=== PATIENT | male | born 1970 | race Caucasian/White ===

== ENCOUNTER 2022-01-18 20:05 | Emergency (ER) | payer MEDICAID ==
[~2022-01-18] VITALS: Ht 177.8 cm; Wt 84.1 kg
[2022-01-18] MEDS ORDERED: cloNIDine 0.1 mg tablet PO ONE (21:30)
[2022-01-18] MEDS ORDERED: cloNIDine 0.1 mg tablet PO STA (22:06)
[2022-01-18] MEDS ORDERED: lisinopril 10 MG tablet PO STA (22:06)
[2022-01-18] MEDS ORDERED: LISI20TA28 PO (22:14)
[2022-01-18 23:28] VITALS: BP 207/136
== END 2022-01-18 23:32 | disposition home or self-care (01) ==
LOC: ER 20:06
DX: F15.10 Other stimulant abuse, uncomplicated (principal); I10 Essential (primary) hypertension; Z88.0 Allergy status to penicillin
CPT/HCPCS: 99285

== ENCOUNTER 2023-03-26 21:22 | Inpatient (IN) | payer MEDICAID ==
[~2023-03-26] VITALS: Ht 167.6 cm; Wt 61.2 kg
[2023-03-26] MEDS ORDERED: heparin 25,000 UNIT/250ml bag 250 ML IV PRN (21:45)
[2023-03-26] MEDS ORDERED: nitroGLYCERIN 25mg/250mL D5W 250 ML IV SCH (21:45)
[2023-03-26] MEDS ORDERED: heparin 10,000 units/1 ML INJ IV PRN (21:45)
[2023-03-26] MEDS ORDERED: nitroGLYCERIN-Tridil 50MG/D5W 250 ML IV SCH (21:50)
--- NOTE | 2023-03-26 21:53 | NUR ---
SPOKE WITH ATTENDING ED DR. BUTLER ABOUT MEDICATIONS PT ARRIVED ON. PER MD, CONTINUE OUR CARDIAC HEPARIN PROTOCOL AND TITRATABLE NIRTOGLYCERIN GTT TO CONTROL BP FOR SYSTOLIC UNDER 150.
[2023-03-26 21:57] LABS: BASOPHILS # (AUTO) 0.1 X10'3 (0-0.2); BASOPHILS % (AUTO) 0.6 % (0-1); EOSINOPHILS # (AUTO) 0.3 X10'3 (0-0.9); EOSINOPHILS % (AUTO) 3.4 % (0-6); HEMATOCRIT 28.6 % (42.0-52.0); HEMOGLOBIN 9.9 g/dl (14.0-17.9); LYMPHOCYTES # (AUTO) 1.5 X10'3 (1.1-4.8); LYMPHOCYTES % (AUTO) 14.8 % (21-51); MEAN CORPUSCULAR HEMOGLOBIN 32.6 PG (27.0-31.0); MEAN CORPUSCULAR HGB CONC 34.5 g/dL (33.0-36.5); MEAN CORPUSCULAR VOLUME 94.4 FL (78-98); MEAN PLATELET VOLUME 7.6 FL (7.4-10.4); MONOCYTES # (AUTO) 0.5 X10'3 (0-0.9); MONOCYTES % (AUTO) 5.4 % (2-12); NEUTROPHILS # (AUTO) 7.5 X10'3 (1.8-7.7); NEUTROPHILS % (AUTO) 75.8 % (42-75); PLATELET COUNT 163 X10'3 (140-440); RED BLOOD COUNT 3.02 X10'6 (4.70-6.10)
[2023-03-26 22:04] LABS: PROTHROMBIN TIME 10.9 SECONDS (9.0-12.0)
[2023-03-26 22:06] LABS: ALANINE AMINOTRANSFERASE 39 U/L (12-78); ALBUMIN 3.3 G/DL (3.4-5.0); ALBUMIN/GLOBULIN RATIO 0.9 (1.1-1.5); ALKALINE PHOSPHATASE 103 IU/L (46-116); ANION GAP 8 (8-16); ASPARTATE AMINO TRANSFERASE 32 U/L (10-37); BILIRUBIN,TOTAL 0.5 MG/DL (0.1-1.0); BLOOD UREA NITROGEN 34 MG/DL (7-18); BUN/CREATININE RATIO 13.7 (10.0-20.0); CALCIUM 8.7 MG/DL (8.5-10.1); CHLORIDE 103 MMOL/L (99-107); CREATININE 2.48 MG/DL (0.60-1.10); GLUCOSE 130 MG/DL (70-104); POTASSIUM 4.1 MMOL/L (3.5-5.1); SODIUM 136 MMOL/L (135-145); TOTAL CARBON DIOXIDE 24.7 MMOL/L (24-32); eCRCL 31 ML/MIN; eGFR 28 ML/MIN
--- NOTE | 2023-03-26 22:14 | NUR ---
pt started at 800units heparin based on protocol/pt weight. no bolus given d/t 5000u bolus given at [facility]. MD Fong aware and suzy. awaiting PTT.
[2023-03-26 22:24] LABS: APTT 84 SECONDS (22-32)
[2023-03-26] MEDS ORDERED: NO HOME MEDS (22:27)
--- NOTE | 2023-03-26 22:33 | NUR ---
per dr garrido, bp systolic goal below 160.
[2023-03-26] MEDS ORDERED: acetaminophen 1,000mg/100ml IV 100 ML IV ONE (22:45)
[2023-03-26] MEDS ORDERED: ipratropium/albuterol 3ml nebule NEB ONE (22:50)
[2023-03-26 22:58] VITALS: PULSE 82; RESP 16; O2SAT 96
[2023-03-26 23:02] VITALS: PULSE 86; RESP 16; O2SAT 96
[2023-03-26] MEDS ORDERED: potassium Cl 20 mEq SR tablet PO PRN ×2 (23:15)
[2023-03-26] MEDS ORDERED: magnesium Cl slow-release 64mg tablet PO PRN (23:15)
[2023-03-26] MEDS ORDERED: morphine 2 MG/ML inj. syringe IV PRN ×2 (23:15)
[2023-03-26] MEDS ORDERED: magnesium hydroxide 30ml (MOM) UD suspension PO PRN (23:15)
[2023-03-26] MEDS ORDERED: HYDROcodone/acetaminophen 5mg/325mg tablet PO PRN (23:15)
[2023-03-26] MEDS ORDERED: mag hydrox/Alum hydrox/simeth 30ml oral suspension PO PRN (23:15)
[2023-03-26] MEDS ORDERED: potassium Cl 40MEQ/1/2NS 520ml 520 ML IV PRN (23:15)
[2023-03-26] MEDS ORDERED: ondansetron/PF 4mg/2ml inj IV PRN (23:15)
[2023-03-26] MEDS ORDERED: magnesium 2GM in 50ml NS 50 ML IV PRN (23:15)
[2023-03-26] MEDS ORDERED: magnesium 4gm in 100ml NS 100 ML IV PRN (23:15)
[2023-03-26] MEDS ORDERED: proCHLORperazine 10 MG/2 ml inj IV ONE (23:45)
[2023-03-27] VITALS (22 sets, daily range): BP systolic 130–197; BP diastolic 83–136; PULSE 64–88; RESP 14–20; TEMP 97.3–99.4; O2SAT 90–96
[2023-03-27] MEDS ORDERED: cloNIDine 0.1 mg tablet PO STA (00:24)
--- NOTE | 2023-03-27 00:44 | NUR ---
attempted to call report, mady chahal is currently with another pt.
--- NOTE | 2023-03-27 01:30 | NUR ---
Pt arrived fr/the ED and assisted to bed 3018A, C/O WARNER. IV Nitro @ 30mcg/min infusing, IV Heparin inf per cardiac protocol @ 600u/hr. 2 RN skin check and MRSA swab completed. Pt. oriented to bed, room, and POC w/treatment education given. Pt states he has not taken any meds f/HTN f/2 months. Pt. also states he does not know the name of his Provider in [place] where he is from.
[2023-03-27 01:38] LABS: BASOPHILS # (AUTO) 0.1 X10'3 (0-0.2); BASOPHILS % (AUTO) 0.7 % (0-1); EOSINOPHILS # (AUTO) 0.2 X10'3 (0-0.9); EOSINOPHILS % (AUTO) 2.3 % (0-6); HEMATOCRIT 27.2 % (42.0-52.0); HEMOGLOBIN 9.4 g/dl (14.0-17.9); LYMPHOCYTES # (AUTO) 1.2 X10'3 (1.1-4.8); LYMPHOCYTES % (AUTO) 13.8 % (21-51); MEAN CORPUSCULAR HEMOGLOBIN 32.7 PG (27.0-31.0); MEAN CORPUSCULAR HGB CONC 34.6 g/dL (33.0-36.5); MEAN CORPUSCULAR VOLUME 94.6 FL (78-98); MEAN PLATELET VOLUME 7.3 FL (7.4-10.4); MONOCYTES # (AUTO) 0.4 X10'3 (0-0.9); NEUTROPHILS # (AUTO) 6.6 X10'3 (1.8-7.7); NEUTROPHILS % (AUTO) 78.2 % (42-75); PLATELET COUNT 158 X10'3 (140-440); RED BLOOD COUNT 2.87 X10'6 (4.70-6.10); RED CELL DISTRIBUTION WIDTH 14.1 % (11.5-14.5); WHITE BLOOD COUNT 8.5 X10'3 (4.5-11.0)
[2023-03-27 01:48] LABS: ALANINE AMINOTRANSFERASE 38 U/L (12-78); ALBUMIN 3.2 G/DL (3.4-5.0); ALBUMIN/GLOBULIN RATIO 0.9 (1.1-1.5); ALKALINE PHOSPHATASE 96 IU/L (46-116); ANION GAP 7 (8-16); ASPARTATE AMINO TRANSFERASE 28 U/L (10-37); BILIRUBIN,TOTAL 0.5 MG/DL (0.1-1.0); BLOOD UREA NITROGEN 34 MG/DL (7-18); BUN/CREATININE RATIO 13.4 (10.0-20.0); CALCIUM 8.8 MG/DL (8.5-10.1); CHLORIDE 104 MMOL/L (99-107); CREATININE 2.53 MG/DL (0.60-1.10); GLUCOSE 130 MG/DL (70-104); POTASSIUM 4.2 MMOL/L (3.5-5.1); SODIUM 137 MMOL/L (135-145); TOTAL CARBON DIOXIDE 25.7 MMOL/L (24-32); TOTAL PROTEIN 6.7 G/DL (6.4-8.2); eCRCL 30 ML/MIN; eGFR 27 ML/MIN
[2023-03-27 01:51] LABS: MAGNESIUM 1.7 MG/DL (1.5-2.4)
[2023-03-27] MEDS: HYDROcodone/acetaminophen 10/325mg tab PO PRN ×2 (02:27→07:36)
[2023-03-27] MEDS: cloNIDine 0.1 mg tablet PO PRN ×2 (04:52→11:34)
--- NOTE | 2023-03-27 05:00 | NUR ---
IV Nitro cont. to infuse @ 30mcg/min. SBP mid 180-mid 190. PRN Clonidine PO admin. Heparin Drip cont @ 600U/HR. Pt. cont to C/O WARNER, medicated f/minimum relief. Noted to be NSR 70s-80s. Skin care given to feet and karla area, using urinal approp, taking PO fluids. Wheezes auscultated to bilat mid lobes.
--- NOTE | 2023-03-27 06:50 | NUR ---
Patient in room PCU 3018. I have received report from YESENIA TA, and had the opportunity to ask questions and assume patient care.
--- NOTE | 2023-03-27 07:14 | NUR ---
Problems reprioritized. Patient report given, questions answered & plan of care reviewed with Patricia PATTERSON.
[2023-03-27] MEDS: docusate sod 100mg capsule PO SCH ×2 (07:37→20:00)
[2023-03-27] MEDS ORDERED: CefTRIAXone/D5W-Rocephin 1gm 50 ML IV SCH (08:00)
[2023-03-27] MEDS: K and/or MAG REPLACEMENT MC SCH ×2 (08:00→20:00)
[2023-03-27] MEDS: furosemide 20 MG/2 ML vial IV SCH ×2 (08:30→22:13)
[2023-03-27] MEDS ORDERED: lisinopril 10 MG tablet PO ONE (10:55)
[2023-03-27] MEDS ORDERED: LORazepam 0.5 MG tablet PO PRN (12:40)
--- NOTE | 2023-03-27 12:55 | NUR ---
PROVIDER NOTIFIED PT'S BP REMAINS ELEVATED DESPITE LISINOPRIL AND CATAPRES. RECEIVED AN ORDER FOR HYDRALAZINE 10 MG IV Q6HR PRN, FOR SBP >180, DBP > 120.
[2023-03-27] MEDS: hydrALAZINE 20mg/ml inj. IV PRN (13:13)
--- NOTE | 2023-03-27 18:41 | NUR ---
Problems reprioritized. Patient report given, questions answered & plan of care reviewed with YESENIA ALLAN.
[2023-03-27] MEDS: levoFLOXACIN-Levaquin 250mg/D5 50 ML IV SCH (22:17)
[2023-03-28] MEDS: hydrALAZINE 20mg/ml inj. IV PRN ×2 (00:43→08:03)
[2023-03-28] MEDS: acetaminophen 325mg tablet PO PRN ×2 (04:36→08:33)
--- NOTE | 2023-03-28 06:17 | NUR ---
Problems reprioritized. Patient report given, questions answered & plan of care reviewed with Ronald PATTERSON.
[2023-03-28 06:37] LABS: ALANINE AMINOTRANSFERASE 29 U/L (12-78); ALBUMIN 3.3 G/DL (3.4-5.0); ALBUMIN/GLOBULIN RATIO 0.8 (1.1-1.5); ALKALINE PHOSPHATASE 101 IU/L (46-116); ANION GAP 6 (8-16); ASPARTATE AMINO TRANSFERASE 23 U/L (10-37); BILIRUBIN,TOTAL 0.5 MG/DL (0.1-1.0); BLOOD UREA NITROGEN 36 MG/DL (7-18); BUN/CREATININE RATIO 13.5 (10.0-20.0); CALCIUM 9.7 MG/DL (8.5-10.1); CHLORIDE 102 MMOL/L (99-107); CREATININE 2.66 MG/DL (0.60-1.10); GLUCOSE 104 MG/DL (70-104); MAGNESIUM 1.9 MG/DL (1.5-2.4); POTASSIUM 4.5 MMOL/L (3.5-5.1); SODIUM 136 MMOL/L (135-145); TOTAL CARBON DIOXIDE 27.8 MMOL/L (24-32); TOTAL PROTEIN 7.4 G/DL (6.4-8.2); eCRCL 29 ML/MIN; eGFR 26 ML/MIN
[2023-03-28 06:53] LABS: BASOPHILS # (AUTO) 0.1 X10'3 (0-0.2); BASOPHILS % (AUTO) 0.8 % (0-1); EOSINOPHILS # (AUTO) 0.3 X10'3 (0-0.9); EOSINOPHILS % (AUTO) 3.9 % (0-6); HEMATOCRIT 32.1 % (42.0-52.0); LYMPHOCYTES # (AUTO) 1.2 X10'3 (1.1-4.8); LYMPHOCYTES % (AUTO) 15.5 % (21-51); MEAN CORPUSCULAR HEMOGLOBIN 32.4 PG (27.0-31.0); MEAN CORPUSCULAR HGB CONC 34.2 g/dL (33.0-36.5); MEAN CORPUSCULAR VOLUME 94.9 FL (78-98); MONOCYTES # (AUTO) 0.5 X10'3 (0-0.9); MONOCYTES % (AUTO) 6.3 % (2-12); NEUTROPHILS # (AUTO) 5.7 X10'3 (1.8-7.7); NEUTROPHILS % (AUTO) 73.5 % (42-75); PLATELET COUNT 196 X10'3 (140-440); RED BLOOD COUNT 3.38 X10'6 (4.70-6.10); RED CELL DISTRIBUTION WIDTH 14.2 % (11.5-14.5); WHITE BLOOD COUNT 7.7 X10'3 (4.5-11.0)
[2023-03-28 07:57] VITALS: BP 218/136; PULSE 80; RESP 18; TEMP 97.7; O2SAT 100
[2023-03-28] MEDS ORDERED: lisinopril 10 MG tablet PO SCH (08:00)
[2023-03-28] MEDS: K and/or MAG REPLACEMENT MC SCH ×2 (08:00→20:00)
[2023-03-28] MEDS: furosemide 20 MG/2 ML vial IV SCH ×2 (08:07→20:58)
[2023-03-28] MEDS: docusate sod 100mg capsule PO SCH ×2 (08:08→20:58)
[2023-03-28] MEDS: levoFLOXACIN-Levaquin 250mg/D5 50 ML IV SCH (08:11)
[2023-03-28 08:12] VITALS: RESP 16; O2SAT 98
[2023-03-28] MEDS: heparin, porcine 5000 units/ml vial SQ SCH ×2 (08:12→20:58)
[2023-03-28] MEDS: cloNIDine 0.1 mg tablet PO PRN (08:32)
[2023-03-28] MEDS: lisinopril 20mg tablet PO SCH ×2 (08:44→20:56)
[2023-03-28 10:45] VITALS: BP 154/89; PULSE 93; RESP 12; TEMP 99.9; O2SAT 98
[2023-03-28 15:15] VITALS: BP 140/89; PULSE 89; RESP 26; TEMP 97.9; O2SAT 98
[2023-03-28] MEDS ORDERED: HYDR-4069 PO (15:16)
[2023-03-28 18:00] VITALS: BP 140/89; PULSE 76; RESP 18; TEMP 97.3; O2SAT 95
--- NOTE | 2023-03-28 18:30 | NUR ---
Patient in room PCU 3018A. I have received report from CURTIS PATTERSON, and had the opportunity to ask questions and assume patient care.
[2023-03-28 22:00] VITALS: BP 172/114; PULSE 87; RESP 18; TEMP 97.6; O2SAT 95
--- NOTE | 2023-03-28 23:02 | NUR ---
PAGER ID: [phone] MESSAGE: [phone] Lakhwinder Menendez BP 180/110 Rajani PATTERSON [phone]
[2023-03-28] MEDS ORDERED: hydrALAZINE 20mg/ml inj. IV PRN (23:10)
[2023-03-29 01:03] VITALS: BP 157/86
--- NOTE | 2023-03-29 02:00 | NUR ---
Patient refused VS except BP
[2023-03-29 06:15] VITALS: BP 172/94; PULSE 76; RESP 16; TEMP 97.7; O2SAT 94
--- NOTE | 2023-03-29 06:30 | NUR ---
Problems reprioritized. Patient report given CURTIS PATTERSON, questions answered & plan of care reviewed with .
[2023-03-29] MEDS: K and/or MAG REPLACEMENT MC SCH (08:00)
[2023-03-29 08:15] VITALS: RESP 16; O2SAT 96
[2023-03-29] MEDS: lisinopril 20mg tablet PO SCH (08:45)
[2023-03-29] MEDS: docusate sod 100mg capsule PO SCH (08:46)
[2023-03-29] MEDS: furosemide 20 MG/2 ML vial IV SCH (08:47)
[2023-03-29] MEDS: levoFLOXACIN-Levaquin 250mg/D5 50 ML IV SCH (08:47)
[2023-03-29] MEDS: heparin, porcine 5000 units/ml vial SQ SCH (08:54)
[2023-03-29] MEDS ORDERED: LOP25T PO (10:42)
[2023-03-29] MEDS ORDERED: LISI20TA28 PO (10:42)
[2023-03-29 11:00] VITALS: BP 149/103; PULSE 84; RESP 16; TEMP 98.8; O2SAT 94
[2023-03-29 11:57] LABS: BASOPHILS % (AUTO) 0.9 % (0-1); EOSINOPHILS # (AUTO) 0.2 X10'3 (0-0.9); EOSINOPHILS % (AUTO) 4.2 % (0-6); HEMATOCRIT 32.4 % (42.0-52.0); HEMOGLOBIN 11.1 g/dl (14.0-17.9); LYMPHOCYTES # (AUTO) 1.1 X10'3 (1.1-4.8); LYMPHOCYTES % (AUTO) 20.7 % (21-51); MEAN CORPUSCULAR HEMOGLOBIN 32.6 PG (27.0-31.0); MEAN CORPUSCULAR HGB CONC 34.4 g/dL (33.0-36.5); MEAN CORPUSCULAR VOLUME 94.7 FL (78-98); MEAN PLATELET VOLUME 8.1 FL (7.4-10.4); MONOCYTES # (AUTO) 0.4 X10'3 (0-0.9); MONOCYTES % (AUTO) 7.4 % (2-12); NEUTROPHILS # (AUTO) 3.6 X10'3 (1.8-7.7); NEUTROPHILS % (AUTO) 66.8 % (42-75); PLATELET COUNT 203 X10'3 (140-440); RED BLOOD COUNT 3.42 X10'6 (4.70-6.10); RED CELL DISTRIBUTION WIDTH 13.8 % (11.5-14.5); WHITE BLOOD COUNT 5.4 X10'3 (4.5-11.0)
[2023-03-29] MEDS ORDERED: FLU VACC QS2023-24(6MOS UP)/PF 60 MCG/0.5 ML SYRINGE IM ONE (12:00)
[2023-03-29] MEDS ORDERED: pneumococcal 23-VAL P-sac vacc 25 mcg/0.5ml vial IMVAC ONE (12:00)
[2023-03-29 12:12] LABS: ALANINE AMINOTRANSFERASE 27 U/L (12-78); ALBUMIN 3.1 G/DL (3.4-5.0); ALBUMIN/GLOBULIN RATIO 0.8 (1.1-1.5); ALKALINE PHOSPHATASE 95 IU/L (46-116); ANION GAP 6 (8-16); ASPARTATE AMINO TRANSFERASE 22 U/L (10-37); BILIRUBIN,TOTAL 0.4 MG/DL (0.1-1.0); BLOOD UREA NITROGEN 51 MG/DL (7-18); BUN/CREATININE RATIO 18.6 (10.0-20.0); CALCIUM 9.3 MG/DL (8.5-10.1); CHLORIDE 99 MMOL/L (99-107); CREATININE 2.74 MG/DL (0.60-1.10); GLUCOSE 65 MG/DL (70-104); MAGNESIUM 1.8 MG/DL (1.5-2.4); SODIUM 134 MMOL/L (135-145); TOTAL CARBON DIOXIDE 29.3 MMOL/L (24-32); TOTAL PROTEIN 7.2 G/DL (6.4-8.2); eCRCL 28 ML/MIN; eGFR 25 ML/MIN
[2023-03-29] MEDS ORDERED: FURO-150 PO (12:38)
[2023-03-29] MEDS ORDERED: metoprolol tartrate 25mg tablet PO SCH (20:00)
[2023-03-30] MEDS ORDERED: levoFLOXACIN 250mg tablet PO SCH (11:00)
== END 2023-03-29 13:25 | disposition home or self-care (01) | DRG 190 ==
LOC: ER 21:23 → ED HOLD 23:17 → EDBEDREQ 03-27 00:24 → PCU 3S 03-27 01:27
PROVIDERS: ADMIT Internal Medicine; ATTEND Internal Medicine
DX: I21.4 Non-ST elevation (NSTEMI) myocardial infarction (principal); N17.0 Acute kidney failure with tubular necrosis; I50.33 Acute on chronic diastolic (congestive) heart failure; J18.9 Pneumonia, unspecified organism; I13.0 Hypertensive heart and chronic kidney disease with heart failure and stage 1 through stage 4 chronic kidney disease, or unspecified chronic kidney disease; I16.1 Hypertensive emergency; N18.30 Chronic kidney disease, stage 3 unspecified; F19.11 Other psychoactive substance abuse, in remission; Z91.148 Patient's other noncompliance with medication regimen for other reason; Z88.0 Allergy status to penicillin; Z87.891 Personal history of nicotine dependence; Z88.5 Allergy status to narcotic agent; Z79.899 Other long term (current) drug therapy
CPT/HCPCS: 36415; 70450; 71045; 80053; 83735; 83880; 84484; 85025; 85610; 85730; 87081; 87205; 90686; 90732; 93306; 94640; 94760; 96365; 96367; 99285; G0378; J0131; J0360; J0696; J0780; J1644; J1940; J1956; J3490; J7040

== ENCOUNTER 2023-04-09 19:48 | Emergency (ER) | payer MEDICAID ==
[~2023-04-09] VITALS: Ht 167.6 cm; Wt 68.1 kg
[~2023-04-09 19:48] MED LIST: FURO-150 PO; LISI20TA28 PO; LOP25T PO
[2023-04-09 20:03] VITALS: TEMP 98.4
[2023-04-09] MEDS ORDERED: lisinopril 10 MG tablet PO ONE (21:05)
[2023-04-09 21:25] VITALS: BP 170/105; PULSE 83; RESP 16; O2SAT 99
== END 2023-04-09 21:39 | disposition home or self-care (01) ==
LOC: ER 19:49
DX: F15.10 Other stimulant abuse, uncomplicated (principal); I10 Essential (primary) hypertension; Z88.0 Allergy status to penicillin; Z88.5 Allergy status to narcotic agent; Z79.899 Other long term (current) drug therapy
CPT/HCPCS: 93005; 99283

== ENCOUNTER 2023-12-28 23:33 | Inpatient (IN) | payer MEDICAID ==
[~2023-12-28] VITALS: Ht 167.6 cm; Wt 56.7 kg
[2023-12-29] VITALS (12 sets, daily range): BP systolic 105–165; BP diastolic 72–104; PULSE 59–94; RESP 13–18; TEMP 98.1–98.8; O2SAT 92–94
[2023-12-29 00:07] LABS: BASOPHILS # (AUTO) 0.1 X10'3 (0-0.2); EOSINOPHILS # (AUTO) 0.3 X10'3 (0-0.9); EOSINOPHILS % (AUTO) 4.7 % (0-6); HEMATOCRIT 31.3 % (42.0-52.0); HEMOGLOBIN 10.9 g/dl (14.0-17.9); LYMPHOCYTES % (AUTO) 15.4 % (21-51); MEAN CORPUSCULAR HEMOGLOBIN 32.7 PG (27.0-31.0); MEAN CORPUSCULAR HGB CONC 34.8 g/dL (33.0-36.5); MEAN CORPUSCULAR VOLUME 93.8 FL (78-98); MEAN PLATELET VOLUME 7.1 FL (7.4-10.4); MONOCYTES # (AUTO) 0.4 X10'3 (0-0.9); MONOCYTES % (AUTO) 6.5 % (2-12); NEUTROPHILS # (AUTO) 4.9 X10'3 (1.8-7.7); NEUTROPHILS % (AUTO) 72.4 % (42-75); PLATELET COUNT 150 X10'3 (140-440); RED BLOOD COUNT 3.34 X10'6 (4.70-6.10); RED CELL DISTRIBUTION WIDTH 15.5 % (11.5-14.5); WHITE BLOOD COUNT 6.8 X10'3 (4.5-11.0)
--- NOTE | 2023-12-29 00:17 | NUR ---
UPON ASSUMING CARE THIS RN NOTED THAT PT IS ON A NICARDIPINE DRIP THAT WAS APPARENTLY STARTED AT PREVIOUS FACILITY. DOSE 40 MG 200ML AT 25 ML/HR. CURRENT BP 159/101. DISCUSSED WITH DR ALBERTO WHO GAVE VERBAL ORDER TO STOP DRIP AT THIS TIME
[2023-12-29 00:25] LABS: ALBUMIN 3.7 G/DL (3.4-5.0); ANION GAP 13 (8-16); BLOOD UREA NITROGEN 46 MG/DL (7-18); BUN/CREATININE RATIO 14.1 (10.0-20.0); CALCIUM 9.5 MG/DL (8.5-10.1); CHLORIDE 105 MMOL/L (99-107); CREATININE 3.26 MG/DL (0.60-1.10); GLUCOSE 113 MG/DL (70-104); POTASSIUM 3.5 MMOL/L (3.5-5.1); SODIUM 142 MMOL/L (135-145); TOTAL CARBON DIOXIDE 24.3 MMOL/L (24-32); eCRCL 24 ML/MIN; eGFR 20 ML/MIN
[2023-12-29] MEDS ORDERED: potassium Cl 20 mEq SR tablet PO PRN ×2 (01:20)
[2023-12-29] MEDS ORDERED: magnesium sulf-water 4G/100mL 100 ML IV PRN (01:20)
[2023-12-29] MEDS ORDERED: magnesium hydroxide 30ml (MOM) UD suspension PO PRN (01:20)
[2023-12-29] MEDS ORDERED: ondansetron/PF 4mg/2ml inj IV PRN (01:20)
[2023-12-29] MEDS ORDERED: magnesium sulf-water 2g/50mL 50 ML IV PRN (01:20)
[2023-12-29] MEDS ORDERED: mag hydrox/Alum hydrox/simeth 30ml oral suspension PO PRN (01:20)
[2023-12-29] MEDS ORDERED: acetaminophen 325mg tablet PO PRN (01:20)
[2023-12-29] MEDS ORDERED: potassium Cl 40MEQ/1/2NS 520ml 520 ML IV PRN (01:20)
[2023-12-29] MEDS ORDERED: magnesium Cl slow-release 64mg tablet PO PRN (01:20)
--- NOTE | 2023-12-29 01:25 | NUR ---
MD ALBERTO AWARE OF PTS BP 175/111 NO NEW ORDERS
[2023-12-29] MEDS: PERFLUTREN PROTEIN-A MICROSPHR (Optison) 0.22 MG/ML 3ML VIAL IV ONE (01:34)
[2023-12-29] MEDS ORDERED: PERFLUTREN PROTEIN-A MICROSPHR (Optison) 0.22 MG/ML 3ML VIAL IV PRN (01:49)
[2023-12-29 01:58] LABS: HEMOGLOBIN A1C 4.9 % (4.5-6.2)
[2023-12-29 02:03] LABS: PRO BRAIN NATRIURETIC PEPTIDE 25807 PG/ML (0-125)
--- NOTE | 2023-12-29 02:26 | NUR ---
MESSAGE LEFT FOR RESIDENT RE PTS BP 190/115. AWAITING RESPONSE
--- NOTE | 2023-12-29 03:02 | NUR ---
PT C/O 02/08 PAIN R/T LEG CRAMPS. CALL PLACED TO RESIDENT WHO WILL PLACE ORDERS FOR IV ACETAMINOPHEN. CLARIFIED TYLENOL ORDERS WITH RESIDENT MARTI PT DOES HAVE REPORTED ELEVATION TO LFTS. MD WISHES TO PROCEED WITH IV TYLENOL
[2023-12-29] MEDS: acetaminophen 325mg tablet PO ONE (03:12)
[2023-12-29] MEDS: hydrALAZINE 20mg/ml inj. IV PRN (03:13)
--- NOTE | 2023-12-29 03:15 | NUR ---
TYLENOL HELD PT IS CURRENTLY SLEEPING AND IN NO APPARENT DISTRESS. PRN HYDRALAZINE GIVEN FOR SBP 192
[2023-12-29 03:35] LABS: MAGNESIUM 1.5 MG/DL (1.5-2.4); POTASSIUM 3.1 MMOL/L (3.5-5.1)
--- NOTE | 2023-12-29 03:40 | NUR ---
SPOKE WITH RESIDENT DR KIDD RE CRITICAL TROPONIN 157. NO ORDERS RECEIVED. ALSO INFORMED MD THAT PTS BP REMAINS ELEVATED AT 195/125 AFTER PRN HYDRALAZINE APPROX 30 MINUTES AGO. VERBAL ORDER RECEIVED TO MONITOR PT FOR 30 MORE MINUTES AND THEN IF BP REMAINS ELEVATED ABOVE 180 SYSTOLIC OK TO REPEAT 10 MG HYDRALAZINE IV
[2023-12-29] MEDS: hydrALAZINE 20mg/ml inj. IV ONE (04:32)
--- NOTE | 2023-12-29 04:46 | NUR ---
DR MENDOZA NOTIFIED OF PTS TROPONIN 183 NO NEW ORDERS RECEIVED
--- NOTE | 2023-12-29 05:32 | NUR ---
DR. KIDD CALLED REGARDING PATIENT'S PERSISTENT HYPERTENSION. TO PLACE NEW ORDERS FOR NICARDIPINE GTT.
[2023-12-29] MEDS: niCARDipine-NS 40mg/200ml IVPB 200 ML IV SCH (05:42)
--- NOTE | 2023-12-29 06:14 | NUR ---
ASSUMED CARE OF PT. CONFIRMED CARDENE DRIP RATE OF 25ML/HR WITH HAL PATTERSON
[2023-12-29] MEDS: K and/or MAG REPLACEMENT MC SCH (07:18)
--- NOTE | 2023-12-29 07:35 | NUR ---
Per pharmacist and K PO replacement protocol. K will be replaced with 10meq instead of 20meq due to his Cr above 2.5. Pharmacist placed a 10meq order in the [facility].
--- NOTE | 2023-12-29 08:12 | NUR ---
SPOKE WITH MD GRULLON, CARDENE DRIP WILL DROP TO 10ML/HR, AND STILL WANTS TO GIVE ALL MORNING BP MEDICATIONS. CARDENE DRIP CAN STOP ONCE SBP REACHES 150 PER MD.
[2023-12-29] MEDS: lisinopril 20mg tablet PO SCH (08:18)
[2023-12-29] MEDS: docusate sod 100mg capsule PO SCH (08:18)
[2023-12-29] MEDS: potassium chloride 10mEq ER tablet PO SCH (08:19)
[2023-12-29] MEDS: furosemide 10 MG/1 ML 10ml inj IV SCH (08:19)
[2023-12-29] MEDS: carVEDilol 12.5mg tablet PO SCH (08:20)
[2023-12-29] MEDS: amLODIPine 5mg tablet PO SCH (08:20)
--- NOTE | 2023-12-29 08:33 | NUR ---
PT TO CT WITH FINANCIAL AID DIRECTOR FREYA RN, AFTER CT PT WILL GO TO [id number]
--- NOTE | 2023-12-29 08:35 | NUR ---
Patient in room ED 4. I have received report from Gema PATTERSON and had the opportunity to ask questions and assume patient care.
--- NOTE | 2023-12-29 09:25 | NUR ---
Received order for consult. Met with patient in regards to substance use and to see if patient was interested in resources for treatment options. Patient would like outpatient treatment. I gave patient a list of resources, a card for [facility] where he would get intensive outpatient treatment and my card to call me with any questions.
--- NOTE | 2023-12-29 10:46 | NUR ---
Pt's BP are 141/92, 130/86 and 139/90. Relayed BP's to Dr. Seymour and she stated that I could discontinue Cardene. Dr. Lerma [facility] will consult on pt later today.
[2023-12-29] MEDS: normal saline 1000ml 1,000 ML IV SCH (12:30)
[2023-12-29] MEDS: HYDROcodone/acetaminophen 5mg/325mg tablet PO PRN (12:36)
--- NOTE | 2023-12-29 18:30 | NUR ---
Problems reprioritized. Patient report given, questions answered & plan of care reviewed with Tonia RN.
[2023-12-30] VITALS (19 sets, daily range): BP systolic 108–191; BP diastolic 67–130; PULSE 64–84; RESP 12–25; TEMP 97.3–98.5; O2SAT 93–97
--- NOTE | 2023-12-30 00:47 | NUR ---
BP 162/103 Apresoline 10 mg iv given . Pt calm and denies WARNER, CP, dizziness or changes in vision.
--- NOTE | 2023-12-30 05:42 | NUR ---
Pt refused lab draw this am, voiced that he is tired of being poked; tech asked to try again after shift change, BP 153/96 post apresoline, pt denies discomfort.
--- NOTE | 2023-12-30 06:36 | NUR ---
Patient in room PCU 3017. I have received report from Tonia PATTERSON and had the opportunity to ask questions and assume patient care.
--- NOTE | 2023-12-30 06:39 | NUR ---
Problems reprioritized. Patient report given, questions answered & plan of care reviewed with Doreen PATTERSON.
--- NOTE | 2023-12-30 06:50 | NUR ---
Pt refused AM labs per production shift supervisor RN. Pt was educated on reasons for needing regular lab draws. Pt agrees to have labs drawn this morning. Lab notified.
--- NOTE | 2023-12-30 07:13 | NUR ---
PAGER ID: [phone] MESSAGE: [phone] . Lakhwinder Harris. Pt BP last night night 162/101 gave hyralazine. BP this morning 191/130. Rechecked manually BP 204/138. Cherie [phone]
--- NOTE | 2023-12-30 07:18 | NUR ---
Pt's mornings BP was 191/130. Called Dr. Seymour and she wanted pt to restart Cardene drip at 5mg/hr and keep current fluids running at 100ml/hr, she may make adjustments when labs have resulted.
[2023-12-30] MEDS: niCARDipine-NS 40mg/200ml IVPB 200 ML IV SCH (07:36)
[2023-12-30 07:44] LABS: BASOPHILS # (AUTO) 0.1 X10'3 (0-0.2); BASOPHILS % (AUTO) 1.2 % (0-1); EOSINOPHILS # (AUTO) 0.3 X10'3 (0-0.9); EOSINOPHILS % (AUTO) 5.3 % (0-6); HEMATOCRIT 34.1 % (42.0-52.0); HEMOGLOBIN 11.5 g/dl (14.0-17.9); LYMPHOCYTES # (AUTO) 1.2 X10'3 (1.1-4.8); LYMPHOCYTES % (AUTO) 19.2 % (21-51); MEAN CORPUSCULAR HEMOGLOBIN 32.2 PG (27.0-31.0); MEAN CORPUSCULAR HGB CONC 33.9 g/dL (33.0-36.5); MEAN CORPUSCULAR VOLUME 95.1 FL (78-98); MEAN PLATELET VOLUME 7.4 FL (7.4-10.4); MONOCYTES # (AUTO) 0.4 X10'3 (0-0.9); MONOCYTES % (AUTO) 7.1 % (2-12); NEUTROPHILS # (AUTO) 4.1 X10'3 (1.8-7.7); NEUTROPHILS % (AUTO) 67.2 % (42-75); PLATELET COUNT 185 X10'3 (140-440); RED BLOOD COUNT 3.58 X10'6 (4.70-6.10); RED CELL DISTRIBUTION WIDTH 15.4 % (11.5-14.5); WHITE BLOOD COUNT 6.2 X10'3 (4.5-11.0)
[2023-12-30 08:03] LABS: PROTHROMBIN TIME 11.1 SECONDS (9.0-12.0)
[2023-12-30 08:30] LABS: ALANINE AMINOTRANSFERASE 76 U/L (12-78); ALBUMIN 3.4 G/DL (3.4-5.0); ALBUMIN/GLOBULIN RATIO 0.9 (1.1-1.5); ALKALINE PHOSPHATASE 155 IU/L (46-116); ANION GAP 12 (8-16); ASPARTATE AMINO TRANSFERASE 29 U/L (10-37); BILIRUBIN,TOTAL 0.7 MG/DL (0.1-1.0); BLOOD UREA NITROGEN 46 MG/DL (7-18); BUN/CREATININE RATIO 14.4 (10.0-20.0); CALCIUM 8.9 MG/DL (8.5-10.1); CHLORIDE 106 MMOL/L (99-107); CHOLESTEROL 235 MG/DL (0-200); CREATININE 3.19 MG/DL (0.60-1.10); GLUCOSE 103 MG/DL (70-104); HDL CHOLESTEROL 78 MG/DL (35-60); LDL CHOLESTEROL 127 MG/DL (50-100); POTASSIUM 4.5 MMOL/L (3.5-5.1); SODIUM 140 MMOL/L (135-145); TOTAL PROTEIN 7.3 G/DL (6.4-8.2); TRIGLYCERIDES 98 MG/DL (20-135); eCRCL 22 ML/MIN; eGFR 21 ML/MIN
[2023-12-30 18:16] LABS: BILIRUBIN,URINE NEGATIVE (Neg); CLARITY,URINE CLEAR (Clear); COLOR,URINE STRAW (Yellow); GLUCOSE, URINE NEGATIVE (Neg); KETONES,URINE NEGATIVE (Neg); LEUKOCYTE ESTERASE ,URINE NEGATIVE (Neg); NITRITES, URINE NEGATIVE (Neg); OCCULT BLOOD,URINE NEGATIVE (Neg); PH,URINE 7.5 (4.8-8.0); PROTEIN,URINE NEGATIVE (Neg); UROBILINOGEN,URINE 0.2 E.U/dL (0.2-1.0)
[2023-12-30 18:20] LABS: UA COLLECTION TYPE NON-SPECIFIED
--- NOTE | 2023-12-30 18:25 | NUR ---
Problems reprioritized. Patient report given, questions answered & plan of care reviewed with Anh PATTERSON.
--- NOTE | 2023-12-30 23:04 | NUR ---
Patient refused 2200 Vital signs.
[2023-12-31] VITALS (23 sets, daily range): BP systolic 105–160; BP diastolic 58–111; PULSE 61–76; RESP 2–20; TEMP 97–98.7; O2SAT 93–98
[2023-12-31 06:08] LABS: BASOPHILS # (AUTO) 0.1 X10'3 (0-0.2); BASOPHILS % (AUTO) 1.2 % (0-1); EOSINOPHILS # (AUTO) 0.4 X10'3 (0-0.9); EOSINOPHILS % (AUTO) 5.4 % (0-6); HEMATOCRIT 34.3 % (42.0-52.0); HEMOGLOBIN 11.7 g/dl (14.0-17.9); LYMPHOCYTES # (AUTO) 1.5 X10'3 (1.1-4.8); MEAN CORPUSCULAR HEMOGLOBIN 32.4 PG (27.0-31.0); MEAN CORPUSCULAR HGB CONC 34.1 g/dL (33.0-36.5); MEAN CORPUSCULAR VOLUME 95.2 FL (78-98); MONOCYTES # (AUTO) 0.4 X10'3 (0-0.9); NEUTROPHILS # (AUTO) 4.6 X10'3 (1.8-7.7); NEUTROPHILS % (AUTO) 66.4 % (42-75); PLATELET COUNT 215 X10'3 (140-440); RED BLOOD COUNT 3.61 X10'6 (4.70-6.10); RED CELL DISTRIBUTION WIDTH 14.8 % (11.5-14.5)
[2023-12-31 06:12] LABS: PROTHROMBIN TIME 10.4 SECONDS (9.0-12.0)
--- NOTE | 2023-12-31 06:35 | NUR ---
Patient in room PCU 3017. I have received report from Kathryn PATTERSON and had the opportunity to ask questions and assume patient care.
[2023-12-31 06:38] LABS: ANION GAP 12 (8-16); BLOOD UREA NITROGEN 50 MG/DL (7-18); BUN/CREATININE RATIO 15.1 (10.0-20.0); CALCIUM 8.8 MG/DL (8.5-10.1); CHLORIDE 106 MMOL/L (99-107); CREATININE 3.32 MG/DL (0.60-1.10); GLUCOSE 103 MG/DL (70-104); MAGNESIUM 1.8 MG/DL (1.5-2.4); POTASSIUM 4.7 MMOL/L (3.5-5.1); SODIUM 140 MMOL/L (135-145); TOTAL CARBON DIOXIDE 21.9 MMOL/L (24-32); eCRCL 21 ML/MIN; eGFR 20 ML/MIN
[2023-12-31 06:44] LABS: ALANINE AMINOTRANSFERASE 60 U/L (12-78); ALBUMIN 3.3 G/DL (3.4-5.0); ALBUMIN/GLOBULIN RATIO 0.8 (1.1-1.5); ALKALINE PHOSPHATASE 138 IU/L (46-116); ASPARTATE AMINO TRANSFERASE 21 U/L (10-37); BILIRUBIN,TOTAL 0.4 MG/DL (0.1-1.0); TOTAL PROTEIN 7.2 G/DL (6.4-8.2)
[2023-12-31] MEDS: atorvastatin 20mg tablet PO SCH (07:25)
[2023-12-31] MEDS: aspirin 325mg tablet PO ONE (09:37)
[2023-12-31] MEDS: heparin, porcine 5000 units/ml vial SQ SCH (09:38)
--- NOTE | 2023-12-31 18:18 | NUR ---
Problems reprioritized. Patient report given, questions answered & plan of care reviewed with Placido PATTERSON/Maximiliano PATTERSON.
[2023-12-31] MEDS: lisinopril 20mg tablet PO ONE (19:21)
[2024-01-01 02:00] VITALS: BP 165/97; PULSE 73; RESP 24; TEMP 97.3; O2SAT 97
[2024-01-01] MEDS: labetalol 100mg tablet PO ONE (02:23)
[2024-01-01 06:00] VITALS: BP 165/103; PULSE 72; RESP 16; TEMP 97.4; O2SAT 97
[2024-01-01 07:03] LABS: BASOPHILS # (AUTO) 0.1 X10'3 (0-0.2); BASOPHILS % (AUTO) 0.9 % (0-1); EOSINOPHILS # (AUTO) 0.3 X10'3 (0-0.9); EOSINOPHILS % (AUTO) 5.1 % (0-6); HEMATOCRIT 31.7 % (42.0-52.0); HEMOGLOBIN 10.7 g/dl (14.0-17.9); LYMPHOCYTES # (AUTO) 1.3 X10'3 (1.1-4.8); LYMPHOCYTES % (AUTO) 19.9 % (21-51); MEAN CORPUSCULAR HEMOGLOBIN 32.1 PG (27.0-31.0); MEAN CORPUSCULAR HGB CONC 33.8 g/dL (33.0-36.5); MEAN PLATELET VOLUME 8.1 FL (7.4-10.4); MONOCYTES # (AUTO) 0.5 X10'3 (0-0.9); MONOCYTES % (AUTO) 7.5 % (2-12); NEUTROPHILS # (AUTO) 4.3 X10'3 (1.8-7.7); NEUTROPHILS % (AUTO) 66.6 % (42-75); PLATELET COUNT 191 X10'3 (140-440); RED BLOOD COUNT 3.34 X10'6 (4.70-6.10); RED CELL DISTRIBUTION WIDTH 14.7 % (11.5-14.5); WHITE BLOOD COUNT 6.4 X10'3 (4.5-11.0)
[2024-01-01 07:11] LABS: PROTHROMBIN TIME 10.4 SECONDS (9.0-12.0)
[2024-01-01 07:24] LABS: ALANINE AMINOTRANSFERASE 46 U/L (12-78); ALBUMIN/GLOBULIN RATIO 0.9 (1.1-1.5); ALKALINE PHOSPHATASE 110 IU/L (46-116); ANION GAP 11 (8-16); ASPARTATE AMINO TRANSFERASE 20 U/L (10-37); BILIRUBIN,TOTAL 0.4 MG/DL (0.1-1.0); BLOOD UREA NITROGEN 51 MG/DL (7-18); BUN/CREATININE RATIO 15.6 (10.0-20.0); CALCIUM 8.8 MG/DL (8.5-10.1); CHLORIDE 107 MMOL/L (99-107); CREATININE 3.27 MG/DL (0.60-1.10); GLUCOSE 88 MG/DL (70-104); MAGNESIUM 1.8 MG/DL (1.5-2.4); POTASSIUM 4.8 MMOL/L (3.5-5.1); SODIUM 140 MMOL/L (135-145); TOTAL CARBON DIOXIDE 22.3 MMOL/L (24-32); TOTAL PROTEIN 6.5 G/DL (6.4-8.2); eCRCL 21 ML/MIN; eGFR 20 ML/MIN
[2024-01-01] MEDS: lisinopril 20mg tablet PO SCH (08:48)
[2024-01-01] MEDS: furosemide 40mg/4ml inj IV SCH (08:52)
[2024-01-01 10:07] VITALS: BP 130/78
[2024-01-01 11:00] VITALS: BP 146/95; PULSE 68; RESP 18; TEMP 97.3; O2SAT 98
[2024-01-01] MEDS ORDERED: LISI20TA28 PO (12:09)
[2024-01-01] MEDS ORDERED: NOR5T PO (12:09)
[2024-01-01] MEDS ORDERED: ATOR20TA66 PO (14:27)
[2024-01-01] MEDS ORDERED: FURO-150 PO (14:27)
[2024-01-01] MEDS ORDERED: CARV-50 PO (14:27)
--- NOTE | 2024-01-01 15:46 | NUR ---
Pt D/C per hospitalist. Pt stable and appropriate for discharge. PIVs removed, cannula intact. Tele discontinued. All belongings taken home by patient. Reviewed discharge instructions with patient, all questions and concerns addressed. [facility] Pt was wheeled down to lobby by medical staff physician and driven home by taxi cab.
--- NOTE | 2024-01-03 09:58 | NUR ---
Received order for consult. Patient was discharged. Tried to follow up with patient and no number in chart.
== END 2024-01-01 15:48 | disposition home or self-care (01) | DRG 199 ==
LOC: ER 23:34 → ED HOLD 12-29 01:30 → EDBEDREQ 12-29 07:44 → PCU 3S 12-29 09:19
PROVIDERS: ADMIT Surgery; ATTEND Internal Medicine
DX: I16.1 Hypertensive emergency (principal); N17.0 Acute kidney failure with tubular necrosis; I50.33 Acute on chronic diastolic (congestive) heart failure; I13.0 Hypertensive heart and chronic kidney disease with heart failure and stage 1 through stage 4 chronic kidney disease, or unspecified chronic kidney disease; N18.4 Chronic kidney disease, stage 4 (severe); F15.10 Other stimulant abuse, uncomplicated; F17.210 Nicotine dependence, cigarettes, uncomplicated; I27.20 Pulmonary hypertension, unspecified; B19.20 Unspecified viral hepatitis C without hepatic coma; Z79.899 Other long term (current) drug therapy; Z88.5 Allergy status to narcotic agent; Z88.0 Allergy status to penicillin; Z79.82 Long term (current) use of aspirin
CPT/HCPCS: 36415; 70450; 71045; 80048; 80053; 80061; 81003; 82570; 83036; 83735; 83880; 84132; 84156; 84484; 85025; 85610; 87081; 93005; 93306; 93975; 97116; 97161; 97530; 99285; G0378; J0360; J1644; J1940; J3490; J7030

== ENCOUNTER 2024-03-20 10:18 | Inpatient (IN) | payer MEDICAID ==
[~2024-03-20] VITALS: Ht 167.6 cm; Wt 68.3 kg
[~2024-03-20 10:18] MED LIST changes: +ATOR20TA66 PO; +CARV-50 PO; -LOP25T PO; +NOR5T PO
[2024-03-20 11:11] LABS: BASOPHILS % (AUTO) 0.3 % (0-1); EOSINOPHILS % (AUTO) 0.2 % (0-6); HEMATOCRIT 27.3 % (42.0-52.0); LYMPHOCYTES # (AUTO) 0.7 X10'3 (1.1-4.8); LYMPHOCYTES % (AUTO) 12.2 % (21-51); MEAN CORPUSCULAR HEMOGLOBIN 31.6 PG (27.0-31.0); MEAN CORPUSCULAR VOLUME 95.7 FL (78-98); MEAN PLATELET VOLUME 7.9 FL (7.4-10.4); MONOCYTES # (AUTO) 0.6 X10'3 (0-0.9); MONOCYTES % (AUTO) 9.5 % (2-12); NEUTROPHILS # (AUTO) 4.6 X10'3 (1.8-7.7); NEUTROPHILS % (AUTO) 77.8 % (42-75); PLATELET COUNT 226 X10'3 (140-440); RED BLOOD COUNT 2.85 X10'6 (4.70-6.10); RED CELL DISTRIBUTION WIDTH 15.3 % (11.5-14.5); WHITE BLOOD COUNT 5.9 X10'3 (4.5-11.0)
[2024-03-20 11:28] LABS: ALANINE AMINOTRANSFERASE 69 U/L (12-78); ALBUMIN 3.5 G/DL (3.4-5.0); ALBUMIN/GLOBULIN RATIO 0.9 (1.1-1.5); ALKALINE PHOSPHATASE 151 IU/L (46-116); ANION GAP 14 (8-16); ASPARTATE AMINO TRANSFERASE 35 U/L (10-37); BILIRUBIN,TOTAL 0.5 MG/DL (0.1-1.0); BLOOD UREA NITROGEN 70 MG/DL (7-18); CALCIUM 7.4 MG/DL (8.5-10.1); CHLORIDE 103 MMOL/L (99-107); CREATININE 4.68 MG/DL (0.60-1.10); GLUCOSE 94 MG/DL (70-104); SODIUM 138 MMOL/L (135-145); TOTAL CARBON DIOXIDE 21.3 MMOL/L (24-32); TOTAL PROTEIN 7.2 G/DL (6.4-8.2); eCRCL 17 ML/MIN; eGFR 13 ML/MIN
[2024-03-20 11:33] LABS: POTASSIUM 2.7 MMOL/L (3.5-5.1)
[2024-03-20 11:34] LABS: PRO BRAIN NATRIURETIC PEPTIDE > 30000 PG/ML (0-125)
[2024-03-20] MEDS ORDERED: lisinopril 10 MG tablet PO STA (11:48)
[2024-03-20] MEDS: POTASSIUM CHLORIDE 20 MEQ/15 ML oral solution PO STA (12:03)
[2024-03-20] MEDS: aspirin 81mg, enteric-coated 1 TAB TABLET.DR PO ONE (12:03)
[2024-03-20] MEDS: lisinopril 20mg tablet PO STA (12:03)
[2024-03-20] MEDS: potassium CL 10mEq/100ml bag 100 ML IV SCH (12:04)
[2024-03-20] MEDS: furosemide 10 MG/1 ML 10ml inj IV ONE (12:04)
[2024-03-20] MEDS ORDERED: ondansetron/PF 4mg/2ml inj IV PRN (14:45)
[2024-03-20] MEDS ORDERED: potassium Cl 40MEQ/1/2NS 520ml 520 ML IV PRN (14:45)
[2024-03-20] MEDS ORDERED: magnesium sulf-water 2g/50mL 50 ML IV PRN (14:45)
[2024-03-20] MEDS ORDERED: acetaminophen 325mg tablet PO PRN (14:45)
[2024-03-20] MEDS ORDERED: magnesium Cl slow-release 64mg tablet PO PRN (14:45)
[2024-03-20] MEDS ORDERED: magnesium sulf-water 4G/100mL 100 ML IV PRN (14:45)
[2024-03-20] MEDS ORDERED: potassium Cl 20 mEq SR tablet PO PRN (14:45)
[2024-03-20] MEDS: PERFLUTREN PROTEIN-A MICROSPHR (Optison) 0.22 MG/ML 3ML VIAL IV ONE (15:04)
[2024-03-20] MEDS: cloNIDine 0.1 mg tablet PO ONE (15:52)
[2024-03-20 17:54] VITALS: BP 152/100; PULSE 85; RESP 18; TEMP 97.8; O2SAT 98
[2024-03-20 18:00] VITALS: BP 175/113; PULSE 72; RESP 18; RESP 19; TEMP 98.3; O2SAT 97; O2SAT 98
[2024-03-20] MEDS: hydrALAZINE 20mg/ml inj. IV PRN (18:57)
[2024-03-20] MEDS: carvedilol 6.25mg tablet PO SCH (19:01)
[2024-03-20 20:00] VITALS: RESP 19; O2SAT 98
[2024-03-20] MEDS: K and/or MAG REPLACEMENT MC SCH (20:00)
[2024-03-20] MEDS: methylPREDNISolone sod succ/PF 40mg inj. IV SCH (20:56)
[2024-03-20 22:00] VITALS: BP 117/68; PULSE 87; RESP 22; TEMP 98.4; O2SAT 95
[2024-03-20] MEDS: ipratropium/albuterol 3ml nebule NEB SCH (22:39)
[2024-03-20 22:58] VITALS: PULSE 75; RESP 18; O2SAT 95
[2024-03-20 23:04] VITALS: PULSE 74; RESP 18
[2024-03-20] MEDS: potassium Cl 20 mEq SR tablet PO PRN (23:56)
[2024-03-21] VITALS (13 sets, daily range): BP systolic 131–152; BP diastolic 68–99; PULSE 68–91; RESP 16–18; TEMP 97.6–98.4; O2SAT 88–98
[2024-03-21] MEDS ORDERED: ipratropium/albuterol 3ml nebule NEB SCH
[2024-03-21 07:10] LABS: BASOPHILS % (AUTO) 0.2 % (0-1); EOSINOPHILS % (AUTO) 0 % (0-6); HEMATOCRIT 26.3 % (42.0-52.0); HEMOGLOBIN 8.7 g/dl (14.0-17.9); LYMPHOCYTES # (AUTO) 0.5 X10'3 (1.1-4.8); LYMPHOCYTES % (AUTO) 9.2 % (21-51); MEAN CORPUSCULAR HEMOGLOBIN 31.4 PG (27.0-31.0); MEAN CORPUSCULAR VOLUME 95.3 FL (78-98); MEAN PLATELET VOLUME 7.9 FL (7.4-10.4); MONOCYTES # (AUTO) 0.1 X10'3 (0-0.9); MONOCYTES % (AUTO) 2.9 % (2-12); NEUTROPHILS # (AUTO) 4.4 X10'3 (1.8-7.7); NEUTROPHILS % (AUTO) 87.7 % (42-75); PLATELET COUNT 236 X10'3 (140-440); RED BLOOD COUNT 2.76 X10'6 (4.70-6.10); RED CELL DISTRIBUTION WIDTH 15.5 % (11.5-14.5)
[2024-03-21 07:17] LABS: ANION GAP 12 (8-16); BLOOD UREA NITROGEN 69 MG/DL (7-18); BUN/CREATININE RATIO 15.6 (10.0-20.0); CALCIUM 7.8 MG/DL (8.5-10.1); CHLORIDE 104 MMOL/L (99-107); CREATININE 4.41 MG/DL (0.60-1.10); GLUCOSE 124 MG/DL (70-104); MAGNESIUM 1.7 MG/DL (1.5-2.4); POTASSIUM 3.9 MMOL/L (3.5-5.1); SODIUM 137 MMOL/L (135-145); eCRCL 18 ML/MIN; eGFR 14 ML/MIN
[2024-03-21] MEDS: normal saline 1000ml 1,000 ML IV SCH (18:12)
[2024-03-21] MEDS: heparin, porcine 5000 units/ml vial SQ SCH (20:41)
[2024-03-21] MEDS: amLODIPine 5mg tablet PO ONE (23:19)
[2024-03-22] VITALS (19 sets, daily range): BP systolic 144–228; BP diastolic 78–207; PULSE 76–94; RESP 13–21; TEMP 97.4–97.8; O2SAT 96–98
[2024-03-22 06:45] LABS: ALBUMIN 3.1 G/DL (3.4-5.0); ANION GAP 11 (8-16); BLOOD UREA NITROGEN 73 MG/DL (7-18); BUN/CREATININE RATIO 17.8 (10.0-20.0); CALCIUM 7.9 MG/DL (8.5-10.1); CHLORIDE 105 MMOL/L (99-107); CREATININE 4.09 MG/DL (0.60-1.10); GLUCOSE 126 MG/DL (70-104); MAGNESIUM 1.6 MG/DL (1.5-2.4); POTASSIUM 4.4 MMOL/L (3.5-5.1); SODIUM 137 MMOL/L (135-145); TOTAL CARBON DIOXIDE 21.2 MMOL/L (24-32); eCRCL 19 ML/MIN; eGFR 16 ML/MIN
[2024-03-22 06:46] LABS: BASOPHILS % (AUTO) 0.1 % (0-1); EOSINOPHILS % (AUTO) 0 % (0-6); HEMATOCRIT 27.2 % (42.0-52.0); HEMOGLOBIN 9.1 g/dl (14.0-17.9); LYMPHOCYTES # (AUTO) 0.5 X10'3 (1.1-4.8); LYMPHOCYTES % (AUTO) 6.3 % (21-51); MEAN CORPUSCULAR HEMOGLOBIN 32.2 PG (27.0-31.0); MEAN CORPUSCULAR HGB CONC 33.4 g/dL (33.0-36.5); MEAN CORPUSCULAR VOLUME 96.3 FL (78-98); MEAN PLATELET VOLUME 7.8 FL (7.4-10.4); MONOCYTES # (AUTO) 0.3 X10'3 (0-0.9); MONOCYTES % (AUTO) 3.1 % (2-12); NEUTROPHILS # (AUTO) 7.3 X10'3 (1.8-7.7); NEUTROPHILS % (AUTO) 90.5 % (42-75); PLATELET COUNT 239 X10'3 (140-440); RED BLOOD COUNT 2.82 X10'6 (4.70-6.10); RED CELL DISTRIBUTION WIDTH 15.4 % (11.5-14.5)
[2024-03-22 07:03] LABS: % IRON SATURATION 17 % (11-46); IRON 43 UG/DL (53-167); TOTAL IRON BINDING CAPACITY 258 UG/DL (259-388)
[2024-03-22] MEDS: LORazepam 2 mg/ml vial IV ONE (07:26)
[2024-03-22] MEDS: LORazepam 2 mg/ml vial IV PRN (08:08)
[2024-03-22] MEDS: normal saline 1000ml 1,000 ML IV SCH (08:18)
[2024-03-22] MEDS: furosemide 40mg/4ml inj IV ONE (08:18)
[2024-03-22] MEDS: niCARDipine-NS 40mg/200ml IVPB 200 ML IV SCH (16:19)
[2024-03-22] MEDS: acetaminophen 325mg tablet PO PRN (21:10)
[2024-03-23 02:00] VITALS: BP 224/155; PULSE 87; RESP 18; TEMP 98.1; O2SAT 96
[2024-03-23 04:20] VITALS: BP_SYST 224
[2024-03-23] MEDS: guaiFENesin 200 MG/10 ML oral syrup UD cup PO PRN (04:43)
[2024-03-23 07:12] VITALS: PULSE 90; RESP 20; O2SAT 93
[2024-03-23 07:17] VITALS: PULSE 93; RESP 18
== END 2024-03-23 07:26 | disposition left against medical advice (07) | DRG 199 ==
LOC: ER 10:18 → ED HOLD 14:46 → PCU 3S 17:06
PROVIDERS: ADMIT Internal Medicine; ATTEND Internal Medicine
DX: I16.1 Hypertensive emergency (principal); I21.A1 Myocardial infarction type 2; I50.30 Unspecified diastolic (congestive) heart failure; N17.9 Acute kidney failure, unspecified; D64.9 Anemia, unspecified; F15.90 Other stimulant use, unspecified, uncomplicated; Z53.21 Procedure and treatment not carried out due to patient leaving prior to being seen by health care provider; E87.6 Hypokalemia; F17.210 Nicotine dependence, cigarettes, uncomplicated; I13.0 Hypertensive heart and chronic kidney disease with heart failure and stage 1 through stage 4 chronic kidney disease, or unspecified chronic kidney disease; N18.4 Chronic kidney disease, stage 4 (severe); Z88.5 Allergy status to narcotic agent; Z88.0 Allergy status to penicillin; Z91.011 Allergy to milk products; Z91.199 Patient's noncompliance with other medical treatment and regimen due to unspecified reason
CPT/HCPCS: 36415; 71045; 80048; 80053; 83540; 83550; 83735; 83880; 84132; 84484; 85025; 87081; 93005; 93306; 94640; 94664; 94760; 97116; 97161; 97530; 99285; A6258; G0378; J0360; J1644; J1940; J2060; J2919; J3480; J3490; J7030

== ENCOUNTER 2024-03-25 05:18 | Inpatient (IN) | payer MEDICAID ==
[~2024-03-25] VITALS: Ht 167.6 cm; Wt 62.1 kg
[~2024-03-25 05:18] MED LIST changes: -ATOR20TA66 PO; -CARV-50 PO; -FURO-150 PO; -NOR5T PO
[2024-03-25] MEDS ORDERED: nitroGLYCERIN-Tridil 50MG/D5W 250 ML IV SCH (05:30)
[2024-03-25] MEDS: nitroGLYCERIN-Tridil 50MG/D5W 250 ML IV SCH ×2 (05:50→08:13)
[2024-03-25 08:06] LABS: BASOPHILS # (AUTO) 0.1 X10'3 (0-0.2); EOSINOPHILS # (AUTO) 0.2 X10'3 (0-0.9); HEMATOCRIT 26.9 % (42.0-52.0); HEMOGLOBIN 9.2 g/dl (14.0-17.9); LYMPHOCYTES # (AUTO) 0.8 X10'3 (1.1-4.8); LYMPHOCYTES % (AUTO) 14.7 % (21-51); MEAN CORPUSCULAR HEMOGLOBIN 32.6 PG (27.0-31.0); MEAN CORPUSCULAR HGB CONC 34.2 g/dL (33.0-36.5); MEAN CORPUSCULAR VOLUME 95.4 FL (78-98); MEAN PLATELET VOLUME 7.8 FL (7.4-10.4); MONOCYTES # (AUTO) 0.4 X10'3 (0-0.9); MONOCYTES % (AUTO) 7.7 % (2-12); NEUTROPHILS # (AUTO) 3.8 X10'3 (1.8-7.7); NEUTROPHILS % (AUTO) 72.6 % (42-75); PLATELET COUNT 200 X10'3 (140-440); RED BLOOD COUNT 2.82 X10'6 (4.70-6.10); RED CELL DISTRIBUTION WIDTH 15.2 % (11.5-14.5); WHITE BLOOD COUNT 5.3 X10'3 (4.5-11.0)
[2024-03-25 08:23] LABS: ALANINE AMINOTRANSFERASE 45 U/L (12-78); ALBUMIN 3.2 G/DL (3.4-5.0); ALBUMIN/GLOBULIN RATIO 0.9 (1.1-1.5); ALKALINE PHOSPHATASE 100 IU/L (46-116); ANION GAP 13 (8-16); ASPARTATE AMINO TRANSFERASE 29 U/L (10-37); BILIRUBIN,TOTAL 0.7 MG/DL (0.1-1.0); BLOOD UREA NITROGEN 70 MG/DL (7-18); BUN/CREATININE RATIO 15.6 (10.0-20.0); CALCIUM 7.7 MG/DL (8.5-10.1); CHLORIDE 106 MMOL/L (99-107); CREATININE 4.49 MG/DL (0.60-1.10); GLUCOSE 93 MG/DL (70-104); POTASSIUM 3.7 MMOL/L (3.5-5.1); SODIUM 140 MMOL/L (135-145); TOTAL CARBON DIOXIDE 21.3 MMOL/L (24-32); TOTAL PROTEIN 6.6 G/DL (6.4-8.2); eCRCL 18 ML/MIN; eGFR 14 ML/MIN
[2024-03-25 08:29] LABS: PRO BRAIN NATRIURETIC PEPTIDE 20270 PG/ML (0-125)
[2024-03-25 09:11] LABS: URINE AMPHETAMINE SCREEN POSITIVE (Neg); URINE BARBITUATE SCREEN NEGATIVE (Neg); URINE BENZODIAZEPINES SCREEN NEGATIVE (Neg); URINE CANNABINOID SCREEN NEGATIVE (Neg); URINE COCAINE SCREEN NEGATIVE (Neg); URINE METHADONE SCREEN NEGATIVE (Neg); URINE OPIATE SCREEN NEGATIVE (Neg); URINE PHENCYCLIDINE SCREEN NEGATIVE (Neg)
[2024-03-25] MEDS ORDERED: ondansetron/PF 4mg/2ml inj IV PRN (09:20)
[2024-03-25] MEDS ORDERED: magnesium sulf-water 2g/50mL 50 ML IV PRN (09:20)
[2024-03-25] MEDS ORDERED: magnesium Cl slow-release 64mg tablet PO PRN (09:20)
[2024-03-25] MEDS ORDERED: potassium Cl 40MEQ/1/2NS 520ml 520 ML IV PRN (09:20)
[2024-03-25] MEDS ORDERED: acetaminophen 325mg tablet PO PRN (09:20)
[2024-03-25] MEDS ORDERED: potassium Cl 20 mEq SR tablet PO PRN ×2 (09:20)
[2024-03-25] MEDS ORDERED: magnesium sulf-water 4G/100mL 100 ML IV PRN (09:20)
[2024-03-25] MEDS ORDERED: niCARDipine-NS 40mg/200ml IVPB 200 ML IV SCH (09:20)
[2024-03-25] MEDS: cloNIDine 0.1 mg tablet PO SCH (09:37)
[2024-03-25] MEDS: amLODIPine 5mg tablet PO ONE (09:38)
[2024-03-25] MEDS: lisinopril 20mg tablet PO ONE (09:38)
[2024-03-25] MEDS: niCARDipine-NS 40mg/200ml IVPB 200 ML IV SCH (09:39)
[2024-03-25] MEDS: acetaminophen 325mg tablet PO PRN (09:55)
[2024-03-25 12:35] LABS: MAGNESIUM 1.6 MG/DL (1.5-2.4)
[2024-03-25 13:00] VITALS: BP 140/79; PULSE 78; RESP 18; TEMP 97.7; O2SAT 98
[2024-03-25 15:00] VITALS: BP_SYST 119; BP_SYST 127; BP_DIAS 54; BP_DIAS 80; PULSE 72; RESP 16; TEMP 96.7; O2SAT 95; O2SAT 97
[2024-03-25 18:00] VITALS: BP 131/86; PULSE 73; RESP 17; TEMP 97; O2SAT 94
[2024-03-25] MEDS: heparin, porcine 5000 units/ml vial SQ SCH (19:34)
[2024-03-25 22:00] VITALS: BP 130/79; PULSE 64; RESP 18; TEMP 98.5; O2SAT 95
[2024-03-25] MEDS: normal saline 1000ml 1,000 ML IV SCH (22:53)
[2024-03-25] MEDS: Melatonin 3mg tablet PO SCH (22:53)
[2024-03-26 02:00] VITALS: BP 117/74; PULSE 61; RESP 14; TEMP 98.3; O2SAT 95
[2024-03-26 07:25] LABS: BASOPHILS % (AUTO) 0.8 % (0-1); EOSINOPHILS # (AUTO) 0.2 X10'3 (0-0.9); EOSINOPHILS % (AUTO) 5.1 % (0-6); HEMATOCRIT 25.6 % (42.0-52.0); HEMOGLOBIN 8.5 g/dl (14.0-17.9); LYMPHOCYTES % (AUTO) 24.8 % (21-51); MEAN CORPUSCULAR HEMOGLOBIN 32.3 PG (27.0-31.0); MEAN CORPUSCULAR HGB CONC 33.3 g/dL (33.0-36.5); MEAN CORPUSCULAR VOLUME 97.2 FL (78-98); MEAN PLATELET VOLUME 8.1 FL (7.4-10.4); MONOCYTES # (AUTO) 0.3 X10'3 (0-0.9); MONOCYTES % (AUTO) 8.7 % (2-12); NEUTROPHILS # (AUTO) 2.4 X10'3 (1.8-7.7); NEUTROPHILS % (AUTO) 60.6 % (42-75); PLATELET COUNT 195 X10'3 (140-440); RED BLOOD COUNT 2.63 X10'6 (4.70-6.10); RED CELL DISTRIBUTION WIDTH 14.9 % (11.5-14.5); WHITE BLOOD COUNT 3.9 X10'3 (4.5-11.0)
[2024-03-26 08:00] VITALS: BP 138/93; PULSE 64; RESP 19; TEMP 98.4; O2SAT 99
[2024-03-26 08:09] LABS: ALANINE AMINOTRANSFERASE 31 U/L (12-78); ALBUMIN 2.6 G/DL (3.4-5.0); ALBUMIN/GLOBULIN RATIO 0.8 (1.1-1.5); ALKALINE PHOSPHATASE 80 IU/L (46-116); ANION GAP 13 (8-16); ASPARTATE AMINO TRANSFERASE 19 U/L (10-37); BILIRUBIN,TOTAL 0.5 MG/DL (0.1-1.0); BLOOD UREA NITROGEN 62 MG/DL (7-18); BUN/CREATININE RATIO 14.6 (10.0-20.0); CALCIUM 7.2 MG/DL (8.5-10.1); CHLORIDE 106 MMOL/L (99-107); CREATININE 4.24 MG/DL (0.60-1.10); GLUCOSE 95 MG/DL (70-104); POTASSIUM 3.8 MMOL/L (3.5-5.1); SODIUM 138 MMOL/L (135-145); TOTAL CARBON DIOXIDE 18.8 MMOL/L (24-32); TOTAL PROTEIN 5.7 G/DL (6.4-8.2); eCRCL 18 ML/MIN; eGFR 15 ML/MIN
[2024-03-26] MEDS: lisinopril 20mg tablet PO SCH (09:02)
[2024-03-26] MEDS: amLODIPine 5mg tablet PO SCH (09:03)
[2024-03-26 12:00] VITALS: BP 133/86; PULSE 74; RESP 18; TEMP 98.8; O2SAT 95
[2024-03-26 15:27] LABS: BILIRUBIN,URINE NEGATIVE (Neg); CLARITY,URINE CLEAR (Clear); COLOR,URINE YELLOW (Yellow); GLUCOSE, URINE NEGATIVE (Neg); KETONES,URINE NEGATIVE (Neg); LEUKOCYTE ESTERASE ,URINE NEGATIVE (Neg); NITRITES, URINE NEGATIVE (Neg); OCCULT BLOOD,URINE NEGATIVE (Neg); PH,URINE 6.5 (4.8-8.0); PROTEIN,URINE 30 mg/dl (Neg); UROBILINOGEN,URINE 0.2 E.U/dL (0.2-1.0)
[2024-03-26 15:29] LABS: UA COLLECTION TYPE NON-SPECIFIED
[2024-03-26 15:35] LABS: SQUAMOUS EPITHELIAL CELL,UR FEW /LPF (FEW)
[2024-03-26 15:36] LABS: BACTERIA,URINE FEW /HPF (Neg); RBC,URINE 0-2 /HPF (0-2); WBC,URINE 0-4 /HPF (0-4)
[2024-03-26 16:02] LABS: TOTAL PROTEIN,URINE RANDOM 61.3 MG/DL
[2024-03-26 16:04] VITALS: BP 114/73; PULSE 52; RESP 18; TEMP 97.7; O2SAT 95
[2024-03-26 18:00] VITALS: BP 134/84; PULSE 68; RESP 18; TEMP 97; O2SAT 98
[2024-03-26 22:00] VITALS: BP 114/69; PULSE 65; RESP 20; TEMP 97.7; O2SAT 92
[2024-03-27 07:00] VITALS: BP 157/101; PULSE 78; RESP 19; TEMP 98.2; O2SAT 97
[2024-03-27 07:12] LABS: ALANINE AMINOTRANSFERASE 37 U/L (12-78); ALBUMIN 2.8 G/DL (3.4-5.0); ALBUMIN/GLOBULIN RATIO 0.8 (1.1-1.5); ALKALINE PHOSPHATASE 82 IU/L (46-116); ANION GAP 13 (8-16); ASPARTATE AMINO TRANSFERASE 13 U/L (10-37); BILIRUBIN,TOTAL 0.4 MG/DL (0.1-1.0); BLOOD UREA NITROGEN 58 MG/DL (7-18); BUN/CREATININE RATIO 14.6 (10.0-20.0); CALCIUM 7.6 MG/DL (8.5-10.1); CHLORIDE 104 MMOL/L (99-107); CREATININE 3.97 MG/DL (0.60-1.10); GLUCOSE 87 MG/DL (70-104); POTASSIUM 4.4 MMOL/L (3.5-5.1); SODIUM 140 MMOL/L (135-145); TOTAL CARBON DIOXIDE 22.9 MMOL/L (24-32); TOTAL PROTEIN 6.1 G/DL (6.4-8.2); eCRCL 19 ML/MIN; eGFR 16 ML/MIN
[2024-03-27 07:13] LABS: BASOPHILS % (AUTO) 0.6 % (0-1); EOSINOPHILS # (AUTO) 0.2 X10'3 (0-0.9); EOSINOPHILS % (AUTO) 5.1 % (0-6); HEMATOCRIT 26.9 % (42.0-52.0); HEMOGLOBIN 9.1 g/dl (14.0-17.9); LYMPHOCYTES # (AUTO) 1.3 X10'3 (1.1-4.8); LYMPHOCYTES % (AUTO) 31.1 % (21-51); MEAN CORPUSCULAR HEMOGLOBIN 32.2 PG (27.0-31.0); MEAN CORPUSCULAR HGB CONC 33.8 g/dL (33.0-36.5); MEAN CORPUSCULAR VOLUME 95.5 FL (78-98); MEAN PLATELET VOLUME 7.9 FL (7.4-10.4); MONOCYTES # (AUTO) 0.4 X10'3 (0-0.9); MONOCYTES % (AUTO) 10.3 % (2-12); NEUTROPHILS # (AUTO) 2.2 X10'3 (1.8-7.7); NEUTROPHILS % (AUTO) 52.9 % (42-75); PLATELET COUNT 185 X10'3 (140-440); RED BLOOD COUNT 2.81 X10'6 (4.70-6.10); RED CELL DISTRIBUTION WIDTH 14.7 % (11.5-14.5); WHITE BLOOD COUNT 4.2 X10'3 (4.5-11.0)
[2024-03-27 11:00] VITALS: BP 146/72; PULSE 67; RESP 18; TEMP 97.9; O2SAT 97
[2024-03-27 15:00] VITALS: BP 122/76; PULSE 60; RESP 12; TEMP 98.7; O2SAT 97
[2024-03-27] MEDS ORDERED: hyDRALAzine tablet PO (16:39)
[2024-03-27] MEDS ORDERED: NOR5T PO (16:39)
[2024-03-27 17:26] VITALS: BP_SYST 122; PULSE 60
[2024-03-27] MEDS: hyDRALAzine 10mg tablet PO ONE (17:26)
[2024-03-27 18:12] VITALS: O2SAT 97
== END 2024-03-27 18:30 | disposition home or self-care (01) | DRG 199 ==
LOC: ER 05:18 → ED HOLD 09:23 → PCU 3S 13:10
PROVIDERS: ADMIT Internal Medicine; ATTEND Internal Medicine
DX: I16.1 Hypertensive emergency (principal); N17.0 Acute kidney failure with tubular necrosis; I21.A1 Myocardial infarction type 2; I27.20 Pulmonary hypertension, unspecified; N18.4 Chronic kidney disease, stage 4 (severe); I12.9 Hypertensive chronic kidney disease with stage 1 through stage 4 chronic kidney disease, or unspecified chronic kidney disease; F15.10 Other stimulant abuse, uncomplicated; I34.0 Nonrheumatic mitral (valve) insufficiency; Z88.0 Allergy status to penicillin; Z88.5 Allergy status to narcotic agent; Z91.011 Allergy to milk products; I25.2 Old myocardial infarction; Z82.49 Family history of ischemic heart disease and other diseases of the circulatory system
CPT/HCPCS: 36415; 71045; 71250; 80053; 80305; 81001; 82570; 83735; 83880; 84133; 84156; 84300; 84484; 84540; 85025; 86803; 87081; 87522; 93005; 93308; 97161; 97530; 99285; G0378; J1644; J3490; J7030